=== PATIENT | male | born 1990 | race Caucasian/White ===

== ENCOUNTER 2022-08-28 09:40 | Emergency (ER) | payer OTHER ==
[~2022-08-28] VITALS: Ht 182.9 cm; Wt 91.0 kg
[2022-08-28 10:28] LABS: BASOPHILS % 0.5 % (0.0-2.0); EOSINOPHILS % 0.6 % (0.0-5.0); HEMATOCRIT. 45.6 % (42.0-52.0); HEMOGLOBIN. 15.6 g/dL (14.0-18.0); MEAN CORPUSCULAR HEMOGLOBIN 30.4 pg (28.0-32.0); MEAN CORPUSCULAR VOLUME 89.3 fL (80.0-94.0); MEAN PLATELET VOLUME 8.4 fl (7.4-10.4); MONOCYTES % 6.4 % (2.0-8.0); NEUTROPHILS % 67.5 % (40.0-76.0); PLATELET 167 x1000/uL (130-400); RED BLOOD CELL COUNT 5.11 mill/uL (4.7-6.1); RED CELL DISTRIBUTION WIDTH 13.7 % (11.6-14.6)
[2022-08-28] MEDS ORDERED: LEVETIRACETAM 1000MG PREMIX 100 ML IV NR (10:30)
[2022-08-28 10:40] LABS: CHLORIDE 103 mEq/L (98-107)
[2022-08-28 10:47] LABS: ETHANOL BLOOD < 10 mg/dL
[2022-08-28 11:02] LABS: CLARITY URINE CLEAR (CLEAR); COLOR URINE DARK YELLOW (YELLOW); KETONES URINE NEGATIVE (NEGATIVE); LEUKOCYTE ESTERASE URINE NEGATIVE (NEGATIVE); NITRITE URINE NEGATIVE (NEGATIVE); OCCULT BLOOD URINE NEGATIVE (NEGATIVE); PH URINE 5.5 (4.5-8.0); PROTEIN URINE 1+ (NEGATIVE); SPECIFIC GRAVITY URINE 1.024 (1.005-1.030); UROBILINOGEN URINE 0.2 E.U./dL (0.2-1.0)
[2022-08-28 11:22] LABS: *AMPHETAMINES SCREEN URINE PRESUMTIVE POSITIVE (NEGATIVE); *BARBITURATES SCREEN URINE NEGATIVE (NEGATIVE); *BENZODIAZEPINES SCREEN URINE PRESUMTIVE POSITIVE (NEGATIVE); *COCAINE SCREEN URINE NEGATIVE (NEGATIVE); CANNABINOID URINE SCREEN NEGATIVE (NEGATIVE); METHADONE URINE SCREEN PRESUMTIVE POSITIVE (NEGATIVE); OPIATES URINE SCREEN NEGATIVE (NEGATIVE); PHENCYCLIDINE URINE SCREEN NEGATIVE (NEGATIVE)
[2022-08-28 11:53] VITALS: BP 123/83
== END 2022-08-28 11:54 | disposition home or self-care (01) ==
LOC: ER 09:58
DX: R56.9 Unspecified convulsions (principal)
CPT/HCPCS: 36415; 80053; 80305; 80320; 81003; 85025; 96365; 99284; J1953; Z7610; G0480